=== PATIENT | male | born 1975 ===

== ENCOUNTER 2018-03-04 02:36 | Emergency (ER) | payer SELFPAY ==
[2018-03-04 02:56] VITALS: BP 131/99
--- NOTE | 2018-03-04 03:11 | EDPHY ---
H & P Time Seen by Provider: 03/04/18 02:46 HPI/ROS: CHIEF COMPLAINT: I need help to stop drinking History by patient HISTORY OF PRESENT ILLNESS: 42-year-old man with reported history of ulcerative colitis presents intoxicated stating he would like help to stop drinking. Patient states his last drink was just before coming in. He normally drinks about a 5th of hard alcohol a day. He has never tried to quit before and he has no prior history of alcohol withdrawal. He has been drinking daily for least 20 years. He recently got a DUI and lost his job. He is here with a friend who is sober. He has a place to live. REVIEW OF SYSTEMS: As in HPI, but limited due to the patient's acute intoxication Smoking Status: Heavy smoker Physical Exam: General Appearance: Alert, strong odor alcohol, Head: normocephalic, atraumatic Eyes: Pupils equal and round, reactive to light, no pallor, mild bilateral injection. Mouth: Mucous membranes moist. Oropharynx clear Neck: No bony tenderness, full range of motion Respiratory: Normal, effort, lungs are clear to auscultation. No wheezes, rales or rhonchi. Cardiovascular: Regular rate and rhythm. S1, S2, no murmurs, gallops or rubs appreciated Gastrointestinal: Abdomen is soft and nontender, no masses, bowel sounds normal. Neurological: Awake, alert and oriented x 3, cranial nerves 2-12 intact, no pronator drift, normal gait, Skin: Warm and dry, no rashes. Musculoskeletal: No deformities or tenderness. Extremities: full range of motion, no edema, DP2+ bilat Psychiatric: Patient has normal affect, he is cooperative Constitutional: Initial Vital Signs Temperature (C) 36.9 C 03/04/18 02:40 Heart Rate 110 H 03/04/18 02:40 Respiratory Rate 18 03/04/18 02:40 Blood Pressure 131/99 H 03/04/18 02:40 O2 Sat (%) 97 03/04/18 02:40 O2 Delivery Mode Room Air Allergies/Adverse Reactions: No Known Allergies Allergy (Unverified 03/04/18 02:56) Home Medications: Medication Instructions Recorded NK [No Known Home Meds] 03/04/18 MDM/Departure - [facility] Course/Re-evaluation: 42-year-old man with a long history of heavy alcohol use presents asking for help to stop drinking. He is currently clinically intoxicated. There is no evidence of acute alcohol withdrawal. We discussed the risk of alcohol withdrawal. I recommend the patient go to the alcohol recovery Center and his friend is willing to take him there however the patient does not want to go there. We have therefore given him a list of resources from [facility] for outpatient options. We discussed signs symptoms of alcohol withdrawal with the patient's friend who will take him home. - Depart Disposition: Home, Routine, Self-Care Clinical Impression: Alcoholic intoxication Qualifiers: Complication of substance-induced condition: uncomplicated Qualified Code(s): F10.920 - Alcohol use, unspecified with intoxication, uncomplicated Condition: Good Instructions: Alcohol Intoxication (ED), Alcohol Dependence (ED) Additional Instructions: You were seen by Dr. Paris Richardson today. Stop drinking! It will kill you! I recommend you go directly to the [facility]. Please also see information sheet from [facility] for other options. Return for any worsening or new concerns. Referrals: Patient,NotPresent [Primary Care Provider] - As per Instructions
== END 2018-03-04 03:22 | disposition home or self-care (01) ==
LOC: CED 02:36
DX: F10.920 Alcohol use, unspecified with intoxication, uncomplicated (principal); K51.90 Ulcerative colitis, unspecified, without complications; F17.200 Nicotine dependence, unspecified, uncomplicated